=== PATIENT | male | born 1970 | race Hispanic/Latino ===

== ENCOUNTER 2017-07-17 10:40 | Emergency (ER) | payer SELFPAY ==
[2017-07-17] MEDS ORDERED: Albuterol/Ipratropium 3.0-0.5 MG/3 ML Neb Soln NEB ONE (11:14)
--- NOTE | 2017-07-17 11:18 | EDM.PDOC ---
ED HPI GENERAL MEDICAL PROBLEM - General Chief Complaint: Respiratory Problem Stated Complaint: SICK Time Seen by Provider: 07/17/17 11:07 - History of Present Illness INITIAL COMMENTS - FREE TEXT/NARRATIVE: HISTORY AND PHYSICAL: History of present illness: The patient is a 46-year-old male who denies pre-existing lung or cardiac problems and presents with a one-month history of cough productive of phlegm and a spastic cough. He denies any fever nausea vomiting diarrhea abdominal pain sore throat and has not tried any tfwh-tuz-fmwlyye medications. He does not have a local provider. He says when he starts coughing he feels more short of breath. 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 He is eating and drinking normally and does not smoke Review of systems: As per history of present illness and below otherwise all systems reviewed and negative. Past medical history: As per history of present illness and as reviewed below otherwise noncontributory. Surgical history: As per history of present illness and as reviewed below otherwise noncontributory. Social history: No reported history of drug or alcohol abuse. Family history: As per history of present illness and as reviewed below otherwise noncontributory. Physical exam: Gen.: Well-developed thin man who is nontoxic and speaking clearly and easily in the ED without breathlessness or nasal congestion. Vital signs of the note by me HEENT: Atraumatic, normocephalic, pupils reactive, negative for conjunctival pallor or scleral icterus, mucous membranes moist, throat clear, neck supple, nontender, trachea midline. No cervical adenopathy or nuchal rigidity Lungs: Clear to auscultation, breath sounds equal bilaterally, chest nontender. No worker breathing or sensory muscle use Heart: S1S2, regular rate and rhythm no overt murmurs Abdomen: Soft, nondistended, nontender. NABS Negative for costovertebral tenderness. Skin: Normal turgor no evidence of any diaphoresis or rashes appreciated Genitourinary: Deferred. Rectal: Deferred. Extremities: Atraumatic, negative for cords or calf pain. Neurovascular unremarkable. Neuro: Awake, alert, oriented. Cranial nerves II through XII unremarkable. Cerebellum unremarkable. Motor and sensory unremarkable throughout. Exam nonfocal. Diagnostics: Influenza swab chest x-ray Therapeutics: Duo neb and spacer teaching After the DuoNeb patient is moving much more air and says he does feel better. We will give him an inhaler and spacer for home as well as a Z-Jigar and a brief course of prednisone Impression: Acute Bronchitis with bronchospasm Definitive disposition and diagnosis as appropriate pending reevaluation and review of above. - Related Data Allergies Allergy/AdvReac Type Severity Reaction Status Date / Time No Known Allergies Allergy Verified 07/17/17 11:14 Home Meds: Home Meds . [No Known Home Meds] 03/22/16 [History] Past Medical History - Past Health History Medical/Surgical History: Denies Medical/Surgical History Social & Family History - Family History Family Medical History: Noncontributory - Tobacco Use Smoking Status *Q: Never Smoker Second Hand Smoke Exposure: No - Recreational Drug Use Recreational Drug Use: No ED ROS GENERAL - Review of Systems Review Of Systems: ROS reveals no pertinent complaints other than HPI. ED EXAM, GENERAL - Physical Exam Exam: See Below (See dictation) Course - Vital Signs Last Recorded V/S: Last Vital Signs Temp 36.4 C 07/17/17 11:09 Pulse 74 07/17/17 11:09 Resp 18 07/17/17 11:09 BP 136/80 07/17/17 11:09 Pulse Ox 96 07/17/17 11:09 - Orders/Labs/Meds Orders: Active Orders 24 hr Category Date Time Status Communication Order [RC] STAT Care 07/17/17 11:15 Active Communication Order [RC] STAT Care 07/17/17 12:15 Ordered RT Aerosol Therapy [RC] ASDIRECTED Care 07/17/17 11:14 Active Chest 2V [CR] Stat Exams 07/17/17 11:14 Taken Meds: Medications Discontinued Medications Generic Name Dose Route Start Last Admin Trade Name Freq PRN Reason Stop Dose Admin Albuterol/Ipratropium 3 ml 07/17/17 11:14 07/17/17 11:26 Duoneb 3.0-0.5 Mg/3 Ml NEB 07/17/17 11:15 3 ml ONETIME ONE Administration Departure - Departure Time of Disposition: 12:18 Disposition: Home, Self-Care 01 Condition: Good Clinical Impression: Acute bronchitis with bronchospasm - Discharge Information Referrals: PCP,None [Primary Care Provider] - Forms: ED Department Discharge Additional Instructions: The following information is given to patients seen in the emergency department who are being discharged to home. This information is to outline your options for follow-up care. We provide all patients seen in our emergency department with a follow-up referral. The need for follow-up, as well as the timing and circumstances, are variable depending upon the specifics of your emergency department visit. If you don't have a primary care physician on staff, we will provide you with a referral. We always advise you to contact your personal physician following an emergency department visit to inform them of the circumstance of the visit and for follow-up with them and/or the need for any referrals to a consulting specialist. The emergency department will also refer you to a specialist when appropriate. This referral assures that you have the opportunity for followup care with a specialist. All of these measure are taken in an effort to provide you with optimal care, which includes your followup. Under all circumstances we always encourage you to contact your private physician who remains a resource for coordinating your care. When calling for followup care, please make the office aware that this follow-up is from your recent emergency room visit. If for any reason you are refused follow-up, please contact the emergency department at and ask to speak to the emergency department charge nurse. [facility] Primary care- Internal Medicine and Family [address] [phone] Please call our clinics or your provider and get follow-up this week to reevaluate your symptoms and your progress. Please return to ER as needed and as discussed. Please push fluids rest and use all medications as prescribed. You have been given prednisone, albuterol inhaler, and a Z-Jigar from [employer]. He also purchase wzgb-ikn-tnshbrz medicines for cough - My Orders Last 24 Hours: My Active Orders 07/17/17 11:14 RT Aerosol Therapy [RC] ASDIRECTED Chest 2V [CR] Stat 07/17/17 11:15 Communication Order [RC] STAT 07/17/17 12:15 Communication Order [RC] STAT - Assessment/Plan Last 24 Hours: My Active Orders 07/17/17 11:14 RT Aerosol Therapy [RC] ASDIRECTED Chest 2V [CR] Stat 07/17/17 11:15 Communication Order [RC] STAT 07/17/17 12:15 Communication Order [RC] STAT
[2017-07-17 13:02] VITALS: BP 107/58
--- NOTE | 2017-07-18 16:39 | CR ---
EXAM DATE: 07/17/17 PATIENT'S AGE: 46 Patient: MARJORIE ZARATE Facility: [place], [place] Site . Site : 1970 Study: XRay Chest [id number]/10/2017 11:49:40 AM Ordering Physician: Barron Oshea Final Report: INDICATION: Pain/shortness of breath. TECHNIQUE: Chest 2 views. COMPARISON: None. FINDINGS: Cardiovascular and mediastinum: Heart size and vasculature are normal in caliber and appearance. Mediastinum is within normal limits. Lungs and pleural spaces: Lungs are clear. No sign of infiltrate or mass. No sign of pleural effusion. No pneumothorax. Bones and soft tissues: No significant findings. IMPRESSION: Unremarkable chest. Dictated by: Juan J Burrows MD @ 07/17/2017 12:13:26 (Electronic Signature) Report Signed by Proxy. [facility]
== END 2017-07-17 12:33 | disposition home or self-care (01) ==
LOC: MW.ED 10:40
DX: J20.9 Acute bronchitis, unspecified (principal)
CPT/HCPCS: 71020; 71020-26; 87804; 94664; 99283; 99284-25

== ENCOUNTER 2018-08-04 18:47 | Emergency (ER) | payer SELFPAY ==
--- NOTE | 2018-08-04 19:05 | EDM.PDOC ---
ED HPI GENERAL MEDICAL PROBLEM - General Chief Complaint: Fever Stated Complaint: PT HAS FEVER AND COUGH Time Seen by Provider: 08/04/18 19:03 Source of Information: Reports: Patient History Limitations: Reports: No Limitations - History of Present Illness INITIAL COMMENTS - FREE TEXT/NARRATIVE: HISTORY AND PHYSICAL: History of present illness: 47-year-old Argentine only speaking male presenting emergency department with cough and sore throat 2 weeks. Patient is a 47-year-old Argentine only speaking male's daughter helps with translation. Approximately 2 weeks ago patient developed a sore throat and then a subsequent cough with subjective fever Denies any production with the cough. Has had some swollen lymph nodes in his neck. Denies any smoking history. States that his had headaches secondary to coughing spells. Denies any nausea, vomiting, ear pain, belly pain, dysuria, or other signs of systemic infection. On exam posterior pharynx is mildly erythematous with some mild swelling of the tonsils bilaterally. Breath sounds are equal bilaterally with some bibasilar crackles. Review of systems: As per history of present illness and below otherwise all systems reviewed and negative. Past medical history: As per history of present illness and as reviewed below otherwise noncontributory. Surgical history: As per history of present illness and as reviewed below otherwise noncontributory. Social history: No reported history of drug or alcohol abuse. Family history: As per history of present illness and as reviewed below otherwise noncontributory. Physical exam: HEENT: Atraumatic, normocephalic, pupils reactive, negative for conjunctival pallor or scleral icterus, mucous membranes moist, posterior pharynx erythema with mild tonsillar swelling, neck supple, nontender, trachea midline. Lungs: Bibasilar crackles, breath sounds equal bilaterally, chest nontender. Heart: S1S2, regular, negative for clicks, rubs, or JVD. Abdomen: Soft, nondistended, nontender. Negative for masses or hepatosplenomegaly. Negative for costovertebral tenderness. Pelvis: Stable nontender. Genitourinary: Deferred. Rectal: Deferred. Extremities: Atraumatic, negative for cords or calf pain. Neurovascular unremarkable. Neuro: Awake, alert, oriented. Cranial nerves II through XII unremarkable. Cerebellum unremarkable. Motor and sensory unremarkable throughout. Exam nonfocal. Diagnostics: Rapid strep Chest x-ray Therapeutics: Azithromycin/Z-Jigar 5 days Impression: Sore throat Fever Nonproductive cough Bronchitis Plan: Chest x-ray and rapid strep were unremarkable. Secondary to patient's continued symptoms I did go ahead and treat the patient with a Z-Jigar. Instructed him to follow-up with a primary care provider and gave him information on all this. They're to return to emergency department if any new or worsening symptoms. Definitive disposition and diagnosis as appropriate pending reevaluation and review of above. Generalized Pain Score (Numeric/FACES): 10 - Related Data Allergies Allergy/AdvReac Type Severity Reaction Status Date / Time No Known Allergies Allergy Verified 08/04/18 19:09 Home Meds: Home Meds . [No Known Home Meds] 03/22/16 [History] Past Medical History - Past Health History Medical/Surgical History: Denies Medical/Surgical History Social & Family History - Family History Family Medical History: Noncontributory - Caffeine Use Caffeine Use: Reports: None ED ROS GENERAL - Review of Systems Review Of Systems: ROS reveals no pertinent complaints other than HPI. ED EXAM, GENERAL - Physical Exam Exam: See Below Course - Vital Signs Last Recorded V/S: Last Vital Signs Temp 97.3 F 08/04/18 19:05 Pulse 70 08/04/18 19:05 Resp 20 08/04/18 19:05 BP 128/75 08/04/18 19:05 Pulse Ox - Orders/Labs/Meds Orders: Active Orders 24 hr Category Date Time Status Chest 2V [CR] Stat Exams 08/04/18 19:15 Taken CULTURE STREP A CONFIRMATION [RM] Stat Lab 08/04/18 19:25 Results STREP SCRN A RAPID W CULT CONF [RM] Stat Lab 08/04/18 19:25 Results Departure - Departure Time of Disposition: 20:17 Disposition: Home, Self-Care 01 Condition: Good Clinical Impression: Sore throat, Cough, Bronchitis Fever Qualifiers: Fever type: due to other condition Qualified Code(s): R50.81 - Fever presenting with conditions classified elsewhere - Discharge Information Referrals: PCP,None [Primary Care Provider] - Forms: ED Department Discharge Additional Instructions: My general discharge The following information is given to patients seen in the emergency department who are being discharged to home. This information is to outline your options for follow-up care. We provide all patients seen in our emergency department with a follow-up referral. The need for follow-up, as well as the timing and circumstances, are variable depending upon the specifics of your emergency department visit. If you don't have a primary care physician on staff, we will provide you with a referral. We always advise you to contact your personal physician following an emergency department visit to inform them of the circumstance of the visit and for follow-up with them and/or the need for any referrals to a consulting specialist. The emergency department will also refer you to a specialist when appropriate. This referral assures that you have the opportunity for follow-up care with a specialist. All of these measure are taken in an effort to provide you with optimal care, which includes your follow-up. Under all circumstances we always encourage you to contact your private physician who remains a resource for coordinating your care. When calling for follow-up care, please make the office aware that this follow-up is from your recent emergency room visit. If for any reason you are refused follow-up, please contact the [facility] Emergency Department at and asked to speak to the emergency department charge nurse. [facility] Primary Care [address] [place] [id number] Please call above number to follow-up with primary care provider on Tuesday. Be sure to tell them he was seen in the emergency department and they wish for you to be seen since possible. Take medication as prescribed. Return to emergency department if any new or worsening symptoms as discussed. - My Orders Last 24 Hours: My Active Orders 08/04/18 19:15 Chest 2V [CR] Stat 08/04/18 19:25 CULTURE STREP A CONFIRMATION [RM] Stat STREP SCRN A RAPID W CULT CONF [RM] Stat - Assessment/Plan Last 24 Hours: My Active Orders 08/04/18 19:15 Chest 2V [CR] Stat 08/04/18 19:25 CULTURE STREP A CONFIRMATION [RM] Stat STREP SCRN A RAPID W CULT CONF [RM] Stat
[2018-08-04 19:14] VITALS: BP 128/75
--- NOTE | 2018-08-07 10:32 | CR ---
EXAM DATE: 08/04/18 PATIENT'S AGE: 47 Patient: MARJORIE ZARATE Facility: [place], [place] Site . Site : 1970 Study: XRay Chest [id number]/28/2018 7:48:15 PM Ordering Physician: Jose Manuel Gaffney Final Report: HISTORY: Cough. COMPARISON: None. FINDINGS: The lungs are clear. Costophrenic angles sharp. No evidence for pneumonia. Heart size and pulmonary vascularity within normal limits. Bony thorax intact. Dictated by Edith Sofia MD @ Aug 04 2018 7:59PM (Electronic Signature) Report Signed by Proxy. [facility]
== END 2018-08-04 20:29 | disposition home or self-care (01) ==
LOC: MW.ED 18:47
DX: J40 Bronchitis, not specified as acute or chronic (principal); J02.9 Acute pharyngitis, unspecified
CPT/HCPCS: 71046; 71046-26; 87081; 87880-QW; 99283